=== PATIENT | female | born 1980 | race Two or more races ===

== ENCOUNTER 2020-03-03 19:37 | Emergency (ER) | payer MEDICAID, OTHER ==
[~2020-03-03] VITALS: Ht 165.1 cm; Wt 68.2 kg
[2020-03-03 19:38] VITALS: BP 132/93
[2020-03-03] MEDS ORDERED: IBUPROFEN 600 MG TABLET PO ONE (20:15)
[2020-03-03] MEDS ORDERED: OxyCODONE HCL 5 MG IR TABLET PO ONE (20:15)
== END 2020-03-03 22:46 | disposition home or self-care (01) ==
LOC: EMS 19:37
DX: S52.202A Unspecified fracture of shaft of left ulna, initial encounter for closed fracture (principal); S52.255A Nondisplaced comminuted fracture of shaft of ulna, left arm, initial encounter for closed fracture; F17.210 Nicotine dependence, cigarettes, uncomplicated; F12.90 Cannabis use, unspecified, uncomplicated; F19.90 Other psychoactive substance use, unspecified, uncomplicated; Z90.710 Acquired absence of both cervix and uterus; Y04.2XXA Assault by strike against or bumped into by another person, initial encounter; Y93.89 Activity, other specified; Y92.89 Other specified places as the place of occurrence of the external cause; Y99.8 Other external cause status
CPT/HCPCS: 29105

== ENCOUNTER 2023-08-01 02:41 | Emergency (ER) | payer MEDICAID ==
[~2023-08-01] VITALS: Ht 157.5 cm; Wt 80.0 kg
[2023-08-01 03:16] VITALS: TEMP 98.7
[2023-08-01] MEDS ORDERED: LORazepam 2 MG TABLET PO PRN (03:45)
[2023-08-01] MEDS ORDERED: HALOPERIDOL 5 MG TABLET PO PRN (03:45)
[2023-08-01] MEDS ORDERED: ZOLPIDEM TARTRATE 10 MG TABLET PO PRN (03:45)
[2023-08-01 04:14] VITALS: BP 133/73; PULSE 82; RESP 20
== END 2023-08-01 04:16 ==
LOC: EMS 02:43
DX: S30.1XXA Contusion of abdominal wall, initial encounter (principal); S30.0XXA Contusion of lower back and pelvis, initial encounter; F10.20 Alcohol dependence, uncomplicated; F20.9 Schizophrenia, unspecified; F17.210 Nicotine dependence, cigarettes, uncomplicated; F12.90 Cannabis use, unspecified, uncomplicated; F15.90 Other stimulant use, unspecified, uncomplicated; Z90.710 Acquired absence of both cervix and uterus; Z98.890 Other specified postprocedural states; W34.09XA Accidental discharge from other specified firearms, initial encounter; Y93.89 Activity, other specified; Y92.89 Other specified places as the place of occurrence of the external cause; Y99.8 Other external cause status
CPT/HCPCS: 99281; Z7502

== ENCOUNTER 2025-06-15 21:00 | Emergency (ER) | payer MEDICAID, OTHER ==
[~2025-06-15] VITALS: Ht 157.5 cm; Wt 80.0 kg
[2025-06-15 21:31] VITALS: BP 122/106; PULSE 74; RESP 18; TEMP 98.1; O2SAT 97
== END 2025-06-15 22:18 | disposition left against medical advice (07) ==
LOC: EMS 21:00
DX: T76.21XA Adult sexual abuse, suspected, initial encounter (principal); Z53.21 Procedure and treatment not carried out due to patient leaving prior to being seen by health care provider